=== PATIENT | female | born 1950 | race Caucasian/White ===

== ENCOUNTER → 2017-10-18 | Outpatient (CLI) | payer MEDICARE, BC ==
[~2017-10-18] MED LIST: ACE3 PO; CEVIMPT PO; GABA-492 PO; HYOS0.37 PO; KET10 PO; RABE20TA33 PO; TRA50 PO; TRAZ50 PO; TRIAM/HCTZ PO; [UNRECOGNIZED DRUG - CODE] PO; [UNRECOGNIZED DRUG - OTHER] PO
--- NOTE | 2017-10-18 09:13 | RADIOLOGY IMAGING REPORT ---
FACILITY: [facility] PATIENT NAME: Elida Lopez : 1950 MR: [id number] V: [id number] EXAM DATE: ORDERING PHYSICIAN: FABIO SANCHEZ TECHNOLOGIST: Location: Patient: Elida Lopez : 1950 Visit/Account:[id number] Date of Sevice: 10/18/2017 BONE MINERAL DENSITY Provided history: Baseline screening, postmenopausal Additional pertinent history: none COMPARISON STUDIES: none FINDINGS: LEFT HIP: Total hip region - Z-score 1.3 , T-score 0.4 Femoral neck - Z-score 0.5 , T-score -0.8. The lower of the two measurements is normal as defined by the World Health Organization. The corresp onding risk of fracture in the hip is increased 1.6 times compared with a young adult reference pop ulation. LEFT FOREARM: Bone mineral density (BMD) measured in the ULTRADISTAL forearm, where trabecular bone predominates, c orrelates with a Z-score of 0.3 and a T-score of -1.1 which is consistent with mild osteopenia as defined by the World Health Organization. The corresponding risk of fracture in the forearm is incre ased 2.2 times compared with a young adult reference population. Bone mineral density (BMD) measured in the MIDSHAFT forearm, where cortical bone predominates, corre lates with a Z-score of 0.7 and a T-score of -0.8 which is normal as defined by the World Health O rganization. The corresponding risk of fracture in the forearm is increased 1.6 times compared with a young adult reference population. IMPRESSION: 1. LUMBAR SPINE: Not performed due to postoperative hardware 2. LEFT HIP: normal , but with a mildly elevated risk of fracture per above. 3. LEFT Forearm: consistent with mild osteopenia LEFT Femoral Neck: Bone Mineral Density is 1.053 g/cm2 FRAX WHO Fracture Risk Assessment Tool link: http://www.fel[place].ac.uk/FRAX/index.jsp The next DEXA scan of this patient should include the following sites: LEFT HIP, LEFT FOREARM PLEASE NOTE: 1. The World Health Organization defines low BMD as follows: T-score Normal > -1 Osteopenia -1 to -2.5 Osteoporosis < -2.5 without fractures Established osteoporosis < -2.5 with fractures 2. In general, you may wish to consider: Diagnosis Treatment Follow-up DEXA Normal BMD Prevention 2-3 years Osteopenia Prevention/therapy 1-2 years Osteoporosis Therapy Yearly 3. Fracture risk estimated from the T-score is more accurate for vertebral fractures (often spontaneo us) than for hip fractures. Report Dictated By: Marc Frank MD at 10/18/2017 9:05 AM Report E-Signed By: Marc Frank MD at 10/18/2017 9:08 AM WSN:[id number]
--- NOTE | 2017-10-19 08:25 | RADIOLOGY IMAGING REPORT ---
FACILITY: [facility] [place] PATIENT NAME: CHERYL CLEVELAND : [id number] MR: [id number] V: [id number] EXAM DATE: [id number] ORDERING PHYSICIAN: FABIO SANCHEZ TECHNOLOGIST: Stephanie Capps PROCEDURE:BILATERAL DIGITAL SCREENING MAMMOGRAM WITH CAD ASSISTED INTERPRETATION AND 3D BREAST TOMOSYNTHESIS. COMPARISON:Prior mammograms dated 04/25/16, 05/30/12, 05/23/11 and 05/15/11. INDICATIONS:SCREENING FINDINGS: Mildly prominent fibroglandular tissue is seen throughout the breasts. The parenchymal pattern has remained stable when allowing for difference in mammographic technique and patient positioning. There is no evidence of malignant appearing mass, malignant appearing calcification or other secondary sign of malignancy in either breast. DIAGNOSTIC CATEGORY 2--BENIGN FINDING. RECOMMENDATIONS: ROUTINE MAMMOGRAM AND CLINICAL EVALUATION. IMPRESSION: BI-RADS 2: No significant abnormality seen. Images were reviewed with R2CAD and 3D breast tomosynthesis. Dictated by: Addie Chan M.D. on 10/18/2017 at 9:42 Transcribed by: SANTI on 10/18/2017 at 13:14 Approved by: Addie Chan M.D. on 10/19/2017 at 8:24 [facility]
== END ==
LOC: MAMO 00:36
PROVIDERS: ATTEND Obstetrics & Gynecology
DX: Z13.820 Encounter for screening for osteoporosis (principal); Z12.31 Encounter for screening mammogram for malignant neoplasm of breast; Z78.0 Asymptomatic menopausal state; Z96.89 Presence of other specified functional implants
CPT/HCPCS: 77063; 77067; 77080

== ENCOUNTER → 2018-07-25 | Outpatient (CLI) | payer MEDICARE, BC ==
--- NOTE | 2018-07-29 16:37 | RT STRESS TEST REPORT ---
FACILITY: [facility] PATIENT NAME: CHERYL CLEVELAND : [id number] MR: [id number] V: [id number] EXAM DATE: ORDERING PHYSICIAN: FABIO SANCHEZ TECHNOLOGIST: Omar Acquisition Time: 2018-07-25 09:06:52 Total Exercise Time: 00:06:01 Test Indications: Fainting while walking Medications: See med sheet Protocol: BRUCE2 Max HR: 148 BPM 96% of Pred: 154 BPM Max BP: 166/091 mmHG Max Work Load: 7.0 METS PVCs noted during the test Rate related ST depression noted during the test Impression No ischemic EKG changes noted during the test Confirmed by CHUN MENSAH ([id number]) on 07/29/2018 4:36:52 PM Referred By: Overread By: CHUN MENSAH
== END ==
LOC: RESP 06:43
PROVIDERS: ATTEND Obstetrics & Gynecology
DX: R55 Syncope and collapse (principal); I49.9 Cardiac arrhythmia, unspecified
CPT/HCPCS: 93017

== ENCOUNTER → 2018-08-21 | Outpatient (CLI) | payer MEDICARE, BC | LOC: US 00:53 | PROVIDERS: ATTEND Internal Medicine Cardiovascular Disease | DX: I34.0 Nonrheumatic mitral (valve) insufficiency (principal); I35.1 Nonrheumatic aortic (valve) insufficiency; I51.7 Cardiomegaly | CPT/HCPCS: 93306 ==

== ENCOUNTER → 2018-09-16 | Outpatient (CLI) | payer MEDICARE, BC ==
--- NOTE | 2018-09-16 15:08 | RADIOLOGY IMAGING REPORT ---
FACILITY: [facility] PATIENT NAME: Elida Lopez : 1950 MR: [id number] V: [id number] EXAM DATE: ORDERING PHYSICIAN: TAMARA COLEMAN TECHNOLOGIST: Location: [facility] Patient: Elida Lopez : 1950 Visit/Account:[id number] Date of Sevice: 09/16/2018 Exam type: CHEST PA AND LAT History: Source of breath, chest tightness Comparison: CT of the chest December 28, 2011. Findings: The lungs are free of acute effusions, infiltrates or edema. Coarsely calcified mass again seen in t he left lower lobe. Cardiac silhouette is normal in size. Trachea is in midline. There are mild sp ondylotic changes of the thoracic spine. There are postsurgical changes of the lumbar spine which ar e incompletely imaged IMPRESSION: 1. No acute cardiopulmonary process is seen Report Dictated By: Addie Chan MD at 09/16/2018 3:01 PM Report E-Signed By: Addie Chan MD at 09/16/2018 3:03 PM WSN:[email or web address]
== END ==
LOC: RAD 12:49
PROVIDERS: ATTEND Family Medicine
DX: R06.00 Dyspnea, unspecified (principal)
CPT/HCPCS: 71046

== ENCOUNTER → 2018-09-16 | Outpatient (REF) | payer MEDICARE, BC | LOC: ZZSENDIN 12:06 | PROVIDERS: ATTEND Family Medicine | DX: R06.00 Dyspnea, unspecified (principal) | CPT/HCPCS: 85379 ==

== ENCOUNTER → 2018-09-18 | Outpatient (CLI) | payer MEDICARE, BC ==
[~2018-09-18] MED LIST changes: +IOPAMIDOL 76% 50 ML INFUS BTL 100 ML ONE; +NS(*) 0.9% 50 ML BAG 50 ML ONE
--- NOTE | 2018-09-18 11:01 | RADIOLOGY IMAGING REPORT ---
FACILITY: [facility] PATIENT NAME: Elida Lopez : 1950 MR: [id number] V: [id number] EXAM DATE: ORDERING PHYSICIAN: TAMARA COLEMAN TECHNOLOGIST: Location: [facility] - [place], [place] Patient: Elida Lopez : 1950 Visit/Account:[id number] Date of Sevice: 09/18/2018 CTA CHEST with contrast (PULM ANG) HISTORY: Chest pain ADDITIONAL HISTORY: None. TECHNIQUE: CTA chest with contrast. 3D coronal slab MIPs and 2D reconstructions in the coronal and sagittal planes were also created. One of the following dose optimization techniques was utilized in the performance of this exam: automated exposure control; adjustment of the mA and/or kv according to patient size; or use of iterative reconstruction technique. Specific details can be referenced in [facility]'s radiology CT exam operational policy. CONTRAST: 75 mL of Isovue-370 COMPARISON: CT angiogram of the chest 12/28/2011 FINDINGS: Vessels: No acute filling defect within the pulmonary arteries. Mild enlargement of the central pul monary arteries. Mid ascending aorta measures 3.7 cm. Mild calcification of the left main coronary artery. Lower neck: Negative. Heart and pericardium: Negative Mediastinum/hilum/lymph nodes: Negative. Lungs/pleura: Clustered calcifications within the left lower lobe. Visualized upper abdomen: Liver and spleen calcifications. Bones/soft tissues: Negative. Other findings: None significant IMPRESSION: 1. Negative examination for acute pulmonary embolism. 2. No other acute chest process identified. Report Dictated By: Christ Lyles MD at 09/18/2018 10:43 AM Report E-Signed By: Christ Lyles MD at 09/18/2018 10:57 AM WSN:[email or web address]
--- NOTE | 2018-09-18 11:33 | RADIOLOGY IMAGING REPORT ---
FACILITY: [facility] PATIENT NAME: Elida Lopez : 1950 MR: [id number] V: [id number] EXAM DATE: ORDERING PHYSICIAN: TAMARA COLEMAN TECHNOLOGIST: Location: [facility] [place] Patient: Elida Lopez : 1950 Visit/Account:[id number] Date of Sevice: 09/18/2018 Exam type: CHEST PA AND LAT History: Dyspnea Comparison: September 16, 2018. Findings: The lungs are free of acute effusions, infiltrates or edema. There is no evidence of a pneumothorax or pneumomediastinum. Coarse calcified granulomas again seen in the left lower lobe. The cardiac si lhouette is normal in size.. Incompletely imaged are postsurgical changes the lumbar spine IMPRESSION: 1. No acute cardiopulmonary process is seen Report Dictated By: Addie Chan MD at 09/18/2018 11:26 AM Report E-Signed By: Addie Chan MD at 09/18/2018 11:28 AM WSN:[email or web address]
== END ==
LOC: CT 09:25
PROVIDERS: ATTEND Family Medicine
DX: I25.10 Atherosclerotic heart disease of native coronary artery without angina pectoris (principal); I70.0 Atherosclerosis of aorta
CPT/HCPCS: 71046; 71275; J7050; Q9967

== ENCOUNTER → 2018-11-14 | Outpatient (CLI) | payer MEDICARE, BC ==
[~2018-11-14] MED LIST changes: -IOPAMIDOL 76% 50 ML INFUS BTL 100 ML ONE; -NS(*) 0.9% 50 ML BAG 50 ML ONE
--- NOTE | 2018-11-17 16:47 | RT HOLTER TEST ---
FACILITY: [facility] [place] PATIENT NAME: CHERYL CLEVELAND : [id number] MR: [id number] V: [id number] EXAM DATE: ORDERING PHYSICIAN: TAMARA COLEMAN TECHNOLOGIST: Eun Diop-mary date: 2018-11-14 12:54:00 Duration: 47:59:00 Test Indications: chronic ischemia heart disease Medications: Cymbalta Levothyroxine Gabapentin [id number] QRS complexes 371 Ventricular ectopics which represent <1 % of total QRS comp. 32 Supraventricular ectopics which represent <1 % of total QRS comp. * Paced QRS complexes which represent % of total QRS comp. VENTRICULAR ECTOPY 371 Isolated 27 Bigeminal Cycles 0 Couplets 0 Runs 0 Beats in Runs * Beats LONGEST at * BPM at :: -- * Beats FASTEST at * BPM at :: -- SUPRAVENTRICULAR ECTOPY 32 Isolated 0 Couplets 0 Runs 0 Beats in Runs * Beats LONGEST at * BPM at :: -- * Beats FASTEST at * BPM at :: -- HEART RATES 60 MIN at 11:03:36 2018-11-16 101 AVG 163 MAX at 12:55:24 2018-11-15 LONGEST RR 1.168 secs at 16:20:34 2018-11-14 S-T LEVELS Channel 1 -2.000 mm MIN at 22:45:30 2018-11-14 1.600 mm MAX at 06:20:15 2018-11-16 Channel 2 -2.000 mm MIN at 22:39:00 2018-11-14 1.000 mm MAX at 07:09:30 2018-11-16 Channel 3 -2.000 mm MIN at 10:36:00 2018-11-15 1.600 mm MAX at 16:49:00 2018-11-14 Maximum heart rate (HR) was sinus tachycardia at 163 beats per minute (BPM). Minimum heart rate was n ormal sinus rhythm at 60 BPM. There were multiple episodes of sinus tachycarida noted. There were several runs of ventricular bigeminy. Sinus arrhythmia was also noted. All diary entries were associated with sinus tachycardia, some with PACs and PVCs. There were 371 isolated PVCs and 2 7 beats of ventricular bigeminy. There were 32 isolated PACs. There were no runs of ventricular tachycardia or supraventricular tachycardia. Confirmed by DERRICK LEDEZMA ([id number]) on 11/17/2018 4:47:22 PM Referred By: Overread By: DERRICK LEDEZMA
== END ==
LOC: RESP 01:05
PROVIDERS: ATTEND Family Medicine
DX: I47.1 Supraventricular tachycardia (principal)
CPT/HCPCS: 93225; 93226

== ENCOUNTER → 2018-11-27 | Outpatient (CLI) | payer MEDICARE, BC | LOC: RESP 01:29 | PROVIDERS: ATTEND Family Medicine | DX: R06.02 Shortness of breath (principal) | CPT/HCPCS: 94060; 94726; 94729 ==

== ENCOUNTER → 2019-01-07 | Outpatient (REF) | payer MEDICARE, BC | LOC: ZZSENDIN 17:19 | PROVIDERS: ATTEND Family Medicine | DX: R06.00 Dyspnea, unspecified (principal) | CPT/HCPCS: 83880 ==